=== PATIENT | female | born 1965 | race Hispanic/Latino ===

== ENCOUNTER 2020-09-16 16:36 | Emergency (ER) | payer OTHER ==
[~2020-09-16] VITALS: Ht 160 cm; Wt 81.6 kg
[2020-09-16] MEDS ORDERED: DIPHENHYDRAMINE HCL INJ 50 MG/ML VIAL IM ONE (17:00)
[2020-09-16] MEDS ORDERED: PREDNISONE 20 MG TAB PO ONE (17:00)
[2020-09-16] MEDS ORDERED: FAMOTIDINE 20 MG TAB PO ONE (17:00)
[2020-09-16] MEDS ORDERED: EPINEPHRINE HCL 1:1000 1ML 1 MG/ML AMP INJ ONE (17:00)
[2020-09-16] MEDS ORDERED: EPINEPHRINE HCL 1:1000 1ML 1 MG/ML AMP ONE (17:14)
[2020-09-16] MEDS ORDERED: FAMOTIDINE 20 MG TAB ONE (17:14)
[2020-09-16] MEDS ORDERED: PREDNISONE 20 MG TAB ONE (17:14)
[2020-09-16] MEDS ORDERED: DIPHENHYDRAMINE HCL INJ 50 MG/ML VIAL ONE (17:15)
[2020-09-16] MEDS ORDERED: EPINEPHRIN0.3 MG/0.3 IM (19:02)
[2020-09-16] MEDS ORDERED: PEPCID20 MG PO (19:02)
[2020-09-16] MEDS ORDERED: BENADRYL25 M1 PO (19:02)
[2020-09-16] MEDS ORDERED: PREDNISONE20 MG PO (19:02)
== END 2020-09-16 19:23 | disposition home or self-care (01) ==
LOC: FSED 16:50
DX: R21 Rash and other nonspecific skin eruption (principal); T78.40XA Allergy, unspecified, initial encounter; T36.95XA Adverse effect of unspecified systemic antibiotic, initial encounter; I10 Essential (primary) hypertension; E03.9 Hypothyroidism, unspecified
CPT/HCPCS: 99282; J0171; J1200; J7512